=== PATIENT | female | born 1965 | race American Indian/Alaskan Native ===

== ENCOUNTER 2019-10-21 17:20 | Emergency (ER) | payer OTHER ==
--- NOTE | 2019-10-21 21:21 | Event Note ---
ED Screening Note ED Screening Note: states that she fell a month ago went to urgent care diagnosed with a ankle sprain states also diagnosed with gout states she began having erythema in the foot and swelling and toes that began 4 days ago went to an orthopedic doctor today swelling present to the left leg PMHx DM This initial assessment/diagnostic orders/clinical plan/treatment(s) is/are subject to change based on patients health status, clinical progression and re- assessment by fellow clinical providers in the ED. Further treatment and workup at subsequent clinical providers discretion. Patient/guardian urged not to elope from the ED as their condition may be serious if not clinically assessed and managed. Initial orders include: labs
[2019-10-22] MEDS ORDERED: KETOROLAC 30 MG/1 ML INJ IM ONE (00:10)
[2019-10-22] MEDS ORDERED: dexAMETHasone 20 MG/5 ML VIAL IV ONE (00:11)
[2019-10-22 00:12] LABS: Basophils % (Auto) 0.6 % (0.0-1.8); Eosinophils # (Auto) 0.1 K/mm3 (0.0-0.4); Eosinophils % (Auto) 1.9 % (0.0-4.3); Hematocrit 38.1 % (30.3-42.9); Hemoglobin 12.8 gm/dl (10.1-14.3); Lymphocytes # (Auto) 1.6 K/mm3 (1.2-5.4); Lymphocytes % (Auto) 24.3 % (13.4-35.0); Mean Corpuscular HGB Conc 34 % (30-34); Mean Corpuscular Volume 93 fl (79-97); Monocytes # (Auto) 0.6 K/mm3 (0.0-0.8); Monocytes % (Auto) 8.5 % (0.0-7.3); Platelet Count 254 K/mm3 (140-440); Red Cell Distribution Width 15.2 % (13.2-15.2)
[2019-10-22 00:24] LABS: INR 0.97 (0.87-1.13)
[2019-10-22 00:25] LABS: Partial Thromboplastin Time 29.7 Sec. (24.2-36.6)
[2019-10-22 00:54] LABS: Albumin 3.8 g/dL (3.9-5); Calcium 9.5 mg/dL (8.4-10.2)
[2019-10-22] MEDS ORDERED: KETOROLAC 30 MG/1 ML INJ IV ONE (01:08)
[2019-10-22] MEDS ORDERED: POTASSIUM CHLORIDE ER 20 MEQ TAB PO ONE (01:20)
[2019-10-22] MEDS ORDERED: SODIUM CHLORIDE 0.9% 1000 ML 2,000 ML IV ONE (01:22)
--- NOTE | 2019-10-22 01:35 | Emergency Department Report ---
ED General Adult HPI - General Chief complaint: Pain General Stated complaint: LFT LEG SWELLING/PAIN Time Seen by Provider: 10/21/19 21:15 Source: patient Mode of arrival: Ambulatory Limitations: No Limitations - History of Present Illness Initial comments: 54 year old -[place] female with a past medical history of diabetes, CVA, heart attack, hypertension and hyper cholesterolemia presents to the emergency room complaining of left leg swelling and pain intermittently since July 2019. Patient states that she had a fall late in July and was diagnosed with a left ankle strain. Patient states then it he improved and then it had flared up with pain and swelling and was diagnosed on 09/22/2019 with gout. Patient states that she started having pain on 10/19/2019 and went to urgent care and she reports they told her there is nothing they can do. Patient states she did go to an orthopedic provider and she got the same response. Jadon thomas has only tried taking Tylenol No. 3 states that does not help. Recently has taken nothing for pain. She does have a primary care doctor Dr. Loly Shepard. Onset/Timin -: month(s) Location: left, lower extremity Severity scale (0 -10): 10 Quality: stabbing, aching, sharp Consistency: constant Improves with: none Worsens with: movement Associated Symptoms: denies other symptoms Treatments Prior to Arrival: none - Related Data Home Medications Medication Instructions Recorded Confirmed Last Taken Ascorbic Acid [Vitamin C] 1,000 mg PO QDAY 11/29/13 11/29/13 Unknown Aspirin 325 mg PO BID 11/29/13 11/29/13 Unknown Atorvastatin [Lipitor] 40 mg PO QDAY 11/29/13 11/29/13 Unknown Atorvastatin [Lipitor] 40 mg PO QHS 11/29/13 11/29/13 Unknown Clonidine HCl [Catapres] 0.2 mg PO TID 11/29/13 11/29/13 Unknown Clopidogrel [Plavix] 75 mg PO QDAY 11/29/13 11/29/13 Unknown Cyclobenzaprine [Flexeril 10 MG 10 mg PO TID PRN 11/29/13 11/29/13 Unknown TAB] Ferrous Sulfate [Feosol 325 MG tab] 325 mg PO BID 11/29/13 11/29/13 Unknown Furosemide [Lasix] 2 tab PO DAILY 11/29/13 11/29/13 Unknown Gabapentin [Neurontin] 300 mg PO QDAY 11/29/13 11/29/13 Unknown HYDROcodone/APAP 7.5-325 [[place] 1 each PO Q6HR PRN 11/29/13 11/29/13 Unknown 7.5-325 mg TAB] NIFEdipine [NIFEdipine ER] 60 mg PO QDAY 11/29/13 11/29/13 Unknown [place]-3S/Dha/Epa/Fish Oil [Fish 1 cap PO QDAY 11/29/13 11/29/13 Unknown Oil EC 1,200 mg Softgel] Spironolactone [Aldactone] 25 mg PO QDAY 11/29/13 11/29/13 Unknown Tizanidine HCl [Zanaflex] 4 mg PO TID PRN 11/29/13 11/29/13 Unknown Ubidecarenone [Coq-10] 100 mg PO QDAY 11/29/13 11/29/13 Unknown Vitamin B Complex Vit C No.4 1 tab PO QDAY 11/29/13 11/29/13 Unknown [Super B Complex] Zolpidem Tartrate 10 mg PO QHS 11/29/13 11/29/13 Unknown carvediloL [Coreg] 12.5 mg PO BID 11/29/13 11/29/13 Unknown glyBURIDE [Diabeta] 2 tab PO BID 11/29/13 11/29/13 Unknown metFORMIN [Glucophage] 500 mg PO BID 11/29/13 11/29/13 Unknown traMADoL [Ultram 50 MG tab] 50 mg PO Q4HR PRN 11/29/13 11/29/13 Unknown traZODone [Desyrel] 50 mg PO QHS 11/29/13 11/29/13 Unknown Previous Rx's Medication Instructions Recorded Last Taken Type NIFEdipine XL [Procardia Xl] 90 mg PO QDAY #30 tablet 11/30/13 Unknown Rx Potassium Chloride [K-Dur] 20 meq PO QDAY #10 tablet 10/22/19 Unknown Rx cephALEXin [Keflex] 500 mg PO Q12HR #10 cap 10/22/19 Unknown Rx predniSONE [Deltasone] 20 mg PO QDAY #5 tab 10/22/19 Unknown Rx Allergies Allergy/AdvReac Type Severity Reaction Status Date / Time lisinopril Allergy Angioedema Verified 11/29/13 16:26 ED Review of Systems ROS: Stated complaint: LFT LEG SWELLING/PAIN Other details as noted in HPI Comment: All other systems reviewed and negative ED Past Medical Hx - Past Medical History Previous Medical History?: Yes Hx Hypertension: Yes Hx CVA: Yes Hx Heart Attack/AMI: Yes Hx Diabetes: Yes Additional medical history: high cholesterol. CAD - Surgical History Past Surgical History?: Yes - Social History Smoking Status: Never Smoker Substance Use Type: None - Medications Home Medications: Home Medications Medication Instructions Recorded Confirmed Last Taken Type Ascorbic Acid [Vitamin C] 1,000 mg PO QDAY 11/29/13 11/29/13 Unknown History Aspirin 325 mg PO BID 11/29/13 11/29/13 Unknown History Atorvastatin [Lipitor] 40 mg PO QDAY 11/29/13 11/29/13 Unknown History Atorvastatin [Lipitor] 40 mg PO QHS 11/29/13 11/29/13 Unknown History Clonidine HCl [Catapres] 0.2 mg PO TID 11/29/13 11/29/13 Unknown History Clopidogrel [Plavix] 75 mg PO QDAY 11/29/13 11/29/13 Unknown History Cyclobenzaprine [Flexeril 10 MG 10 mg PO TID PRN 11/29/13 11/29/13 Unknown History TAB] Ferrous Sulfate [Feosol 325 MG tab] 325 mg PO BID 11/29/13 11/29/13 Unknown History Furosemide [Lasix] 2 tab PO DAILY 11/29/13 11/29/13 Unknown History Gabapentin [Neurontin] 300 mg PO QDAY 11/29/13 11/29/13 Unknown History HYDROcodone/APAP 7.5-325 [[place] 1 each PO Q6HR PRN 11/29/13 11/29/13 Unknown History 7.5-325 mg TAB] NIFEdipine [NIFEdipine ER] 60 mg PO QDAY 11/29/13 11/29/13 Unknown History [place]-3S/Dha/Epa/Fish Oil [Fish 1 cap PO QDAY 11/29/13 11/29/13 Unknown History Oil EC 1,200 mg Softgel] Spironolactone [Aldactone] 25 mg PO QDAY 11/29/13 11/29/13 Unknown History Tizanidine HCl [Zanaflex] 4 mg PO TID PRN 11/29/13 11/29/13 Unknown History Ubidecarenone [Coq-10] 100 mg PO QDAY 11/29/13 11/29/13 Unknown History Vitamin B Complex Vit C No.4 1 tab PO QDAY 11/29/13 11/29/13 Unknown History [Super B Complex] Zolpidem Tartrate 10 mg PO QHS 11/29/13 11/29/13 Unknown History carvediloL [Coreg] 12.5 mg PO BID 11/29/13 11/29/13 Unknown History glyBURIDE [Diabeta] 2 tab PO BID 11/29/13 11/29/13 Unknown History metFORMIN [Glucophage] 500 mg PO BID 11/29/13 11/29/13 Unknown History traMADoL [Ultram 50 MG tab] 50 mg PO Q4HR PRN 11/29/13 11/29/13 Unknown History traZODone [Desyrel] 50 mg PO QHS 11/29/13 11/29/13 Unknown History NIFEdipine XL [Procardia Xl] 90 mg PO QDAY #30 tablet 11/30/13 Unknown Rx Potassium Chloride [K-Dur] 20 meq PO QDAY #10 tablet 10/22/19 Unknown Rx cephALEXin [Keflex] 500 mg PO Q12HR #10 cap 10/22/19 Unknown Rx predniSONE [Deltasone] 20 mg PO QDAY #5 tab 10/22/19 Unknown Rx ED Physical Exam - General Limitations: No Limitations General appearance: alert, in no apparent distress - Head Head exam: Present: atraumatic, normocephalic - Eye Eye exam: Present: normal appearance - Neck Neck exam: Present: normal inspection - Respiratory Respiratory exam: Present: normal lung sounds bilaterally. Absent: respiratory distress - Cardiovascular Cardiovascular Exam: Present: regular rate, normal rhythm. Absent: systolic murmur, diastolic murmur, rubs, gallop - Expanded Lower Extremity Exam Left Upper Leg exam: Present: normal inspection Knee exam: Present: normal inspection, full ROM Lower Leg exam: Present: normal inspection, full ROM Ankle exam: Present: full ROM, tenderness, swelling Neuro vascular tendon exam: Present: no vascular compromise - Back Exam Back exam: Present: normal inspection - Neurological Exam Neurological exam: Present: alert, oriented X3 - Psychiatric Psychiatric exam: Present: normal affect, normal mood - Skin Skin exam: Present: warm, dry, intact, normal color. Absent: rash ED Course Vital Signs 10/21/19 10/22/19 10/22/19 21:15 01:41 01:45 Temperature 98.8 F Pulse Rate 84 54 L Respiratory 18 18 11 L Rate Blood Pressure 128/66 116/95 O2 Sat by Pulse 99 99 99 Oximetry 10/22/19 10/22/19 10/22/19 02:00 02:31 03:01 Temperature Pulse Rate 62 61 57 L Respiratory 18 15 15 Rate Blood Pressure 143/79 117/57 131/68 O2 Sat by Pulse 99 100 98 Oximetry 10/22/19 03:30 Temperature Pulse Rate 58 L Respiratory 17 Rate Blood Pressure 107/65 O2 Sat by Pulse 99 Oximetry ED Medical Decision Making - Lab Data Result diagrams: 10/21/19 23:30 10/21/19 23:30 - Medical Decision Making 54 year old -[place] female with a past medical history of diabetes, CVA, heart attack, hypertension and hyper cholesterolemia presents to the emergency room complaining of left leg swelling and pain intermittently since July 2019. Patient states that she had a fall late in July and was diagnosed with a left ankle strain. Patient states then it he improved and then it had flared up with pain and swelling and was diagnosed on 09/22/2019 with gout. Patient states that she started having pain on 10/19/2019 and went to urgent care and she reports they told her there is nothing they can do. Patient states she did go to an orthopedic provider and she got the same response. Lore waite has only tried taking Tylenol No. 3 states that does not help. Recently has taken nothing for pain. She does have a primary care doctor Dr. Loly Shepard. Critical care attestation.: If time is entered above; I have spent that time in minutes in the direct care of this critically ill patient, excluding procedure time. ED Disposition Clinical Impression: Hypokalemia, Left ankle pain, Cellulitis of left ankle Disposition: - TO HOME OR SELFCARE Is pt being admited?: No Does the pt Need Aspirin: No Condition: Stable Instructions: Hypokalemia (ED) Additional Instructions: These take medication as prescribed. It's very important for you to follow-up with her primary care provider Friday or Friday of next week to have year potassium rechecked. Prescriptions: predniSONE [Deltasone] 20 mg PO QDAY #5 tab Potassium Chloride [K-Dur] 20 meq PO QDAY #10 tablet cephALEXin [Keflex] 500 mg PO Q12HR #10 cap Referrals: ROSAS SHEPARD [Primary Care Provider] - 3-5 Days Forms: Work/School Release Form(ED)
[2019-10-22] MEDS: POTASSIUM CHLORIDE 10 MEQ 10 MEQ/100 ML BAG IV SCH ×2 (02:17→03:32)
[2019-10-22 04:40] VITALS: BP 119/53
== END 2019-10-22 05:06 | disposition home or self-care (01) ==
LOC: ED 17:20
DX: E87.6 Hypokalemia (principal); L03.116 Cellulitis of left lower limb; I10 Essential (primary) hypertension; I25.2 Old myocardial infarction; E78.00 Pure hypercholesterolemia, unspecified; E11.9 Type 2 diabetes mellitus without complications; Z79.899 Other long term (current) drug therapy; Z88.6 Allergy status to analgesic agent
CPT/HCPCS: 36415; 80053; 85025; 85610; 85730; 93005; 93010; 96361; 96365; 96366; 96375; 99283; J1100; J1885; J3480; J7030

== ENCOUNTER 2020-05-15 15:09 | Emergency (ER) | payer BC ==
[2020-05-15] MEDS ORDERED: ASPIRIN 325 MG TAB PO ONE (15:30)
--- NOTE | 2020-05-15 15:57 | XRay Report ---
CHEST 1 VIEW INDICATION: Chest Pain. COMPARISON: 11/29/2013. FINDINGS: Support devices: None. Heart: Within normal limits. Lungs/Pleura: No acute air space or interstitial disease. Additional findings: None. IMPRESSION: No acute abnormality. Signer Name: Jose Daniel Jamison MD Signed: 05/15/2020 3:53 PM Workstation Name: [id number]
[2020-05-15 16:52] LABS: Basophils % (Auto) 0.5 % (0.0-1.8); Eosinophils # (Auto) 0.2 K/mm3 (0.0-0.4); Eosinophils % (Auto) 2.6 % (0.0-4.3); Hematocrit 34.6 % (30.3-42.9); Hemoglobin 11.9 gm/dl (10.1-14.3); Lymphocytes # (Auto) 1.3 K/mm3 (1.2-5.4); Lymphocytes % (Auto) 21.7 % (13.4-35.0); Mean Corpuscular HGB Conc 34 % (30-34); Mean Corpuscular Volume 93 fl (79-97); Monocytes # (Auto) 0.6 K/mm3 (0.0-0.8); Monocytes % (Auto) 9.9 % (0.0-7.3); Platelet Count 195 K/mm3 (140-440); Red Blood Count 3.71 M/mm3 (3.65-5.03); Red Cell Distribution Width 15.4 % (13.2-15.2)
[2020-05-15 17:20] LABS: BUN/Creatinine Ratio 11; Blood Urea Nitrogen 15 mg/dL (7-17); Calcium 8.5 mg/dL (8.4-10.2); Hemolysis Index 5
[2020-05-16] MEDS ORDERED: DICYCLOMINE 20 MG/2 ML INJ IM ONE (00:15)
[2020-05-16] MEDS ORDERED: ONDANSETRON 4 MG/2 ML INJ IM ONE (00:20)
--- NOTE | 2020-05-16 00:22 | Emergency Department Report ---
ED General Adult HPI - General Chief complaint: Chest Pain Stated complaint: ABD PAIN/CP Time Seen by Provider: 05/16/20 00:07 Source: patient, EMS Mode of arrival: Ambulatory Limitations: No Limitations - History of Present Illness Initial comments: Patient is 55 years old female with history of hypertension, coronary artery disease and diabetes. Patient presented to the ER complaining of left sided chest pain, sharp in nature with no radiation. Patient is also complaining of left lower quadrant pain. Patient stated the pain is been going on for 4 days. Patient denied any fever or chills. No cough or shortness of breath. Patient stated that she is nauseated but denied any vomiting or diarrhea. - Related Data Home Medications Medication Instructions Recorded Confirmed Last Taken Ascorbic Acid [Vitamin C] 1,000 mg PO QDAY 11/29/13 11/29/13 Unknown Aspirin 325 mg PO BID 11/29/13 11/29/13 Unknown Atorvastatin [Lipitor] 40 mg PO QDAY 11/29/13 11/29/13 Unknown Atorvastatin [Lipitor] 40 mg PO QHS 11/29/13 11/29/13 Unknown Clonidine HCl [Catapres] 0.2 mg PO TID 11/29/13 11/29/13 Unknown Clopidogrel [Plavix] 75 mg PO QDAY 11/29/13 11/29/13 Unknown Cyclobenzaprine [Flexeril 10 MG 10 mg PO TID PRN 11/29/13 11/29/13 Unknown TAB] Ferrous Sulfate [Feosol 325 MG tab] 325 mg PO BID 11/29/13 11/29/13 Unknown Furosemide [Lasix] 2 tab PO DAILY 11/29/13 11/29/13 Unknown Gabapentin [Neurontin] 300 mg PO QDAY 11/29/13 11/29/13 Unknown HYDROcodone/APAP 7.5-325 [[place] 1 each PO Q6HR PRN 11/29/13 11/29/13 Unknown 7.5-325 mg TAB] NIFEdipine [NIFEdipine ER] 60 mg PO QDAY 11/29/13 11/29/13 Unknown [place]-3S/Dha/Epa/Fish Oil [Fish 1 cap PO QDAY 11/29/13 11/29/13 Unknown Oil EC 1,200 mg Softgel] Spironolactone [Aldactone] 25 mg PO QDAY 11/29/13 11/29/13 Unknown Tizanidine HCl [Zanaflex] 4 mg PO TID PRN 11/29/13 11/29/13 Unknown Ubidecarenone [Coq-10] 100 mg PO QDAY 11/29/13 11/29/13 Unknown Vitamin B Complex Vit C No.4 1 tab PO QDAY 11/29/13 11/29/13 Unknown [Super B Complex] Zolpidem Tartrate 10 mg PO QHS 11/29/13 11/29/13 Unknown carvediloL [Coreg] 12.5 mg PO BID 11/29/13 11/29/13 Unknown glyBURIDE [Diabeta] 2 tab PO BID 11/29/13 11/29/13 Unknown metFORMIN [Glucophage] 500 mg PO BID 11/29/13 11/29/13 Unknown traMADoL [Ultram 50 MG tab] 50 mg PO Q4HR PRN 11/29/13 11/29/13 Unknown traZODone [Desyrel] 50 mg PO QHS 11/29/13 11/29/13 Unknown Previous Rx's Medication Instructions Recorded Last Taken Type NIFEdipine XL [Procardia Xl] 90 mg PO QDAY #30 tablet 11/30/13 Unknown Rx Potassium Chloride [K-Dur] 20 meq PO QDAY #10 tablet 10/22/19 Unknown Rx cephALEXin [Keflex] 500 mg PO Q12HR #10 cap 10/22/19 Unknown Rx predniSONE [Deltasone] 20 mg PO QDAY #5 tab 10/22/19 Unknown Rx Allergies Allergy/AdvReac Type Severity Reaction Status Date / Time lisinopril Allergy Angioedema Verified 11/29/13 16:26 ED Review of Systems ROS: Stated complaint: ABD PAIN/CP Other details as noted in HPI Comment: All other systems reviewed and negative Constitutional: denies: chills, fever Respiratory: denies: cough, shortness of breath, SOB with exertion Cardiovascular: chest pain. denies: palpitations, dyspnea on exertion, ort hopnea Gastrointestinal: abdominal pain. denies: nausea, vomiting, diarrhea, constipation, hematemesis, melena, hematochezia Musculoskeletal: denies: back pain Neurological: denies: headache, weakness, numbness, paresthesias, confusion, abnormal gait ED Past Medical Hx - Past Medical History Previous Medical History?: Yes Hx Hypertension: Yes Hx CVA: Yes Hx Heart Attack/AMI: Yes Hx Diabetes: Yes Additional medical history: high cholesterol. CAD - Social History Smoking Status: Never Smoker Substance Use Type: None - Medications Home Medications: Home Medications Medication Instructions Recorded Confirmed Last Taken Type Ascorbic Acid [Vitamin C] 1,000 mg PO QDAY 11/29/13 11/29/13 Unknown History Aspirin 325 mg PO BID 11/29/13 11/29/13 Unknown History Atorvastatin [Lipitor] 40 mg PO QDAY 11/29/13 11/29/13 Unknown History Atorvastatin [Lipitor] 40 mg PO QHS 11/29/13 11/29/13 Unknown History Clonidine HCl [Catapres] 0.2 mg PO TID 11/29/13 11/29/13 Unknown History Clopidogrel [Plavix] 75 mg PO QDAY 11/29/13 11/29/13 Unknown History Cyclobenzaprine [Flexeril 10 MG 10 mg PO TID PRN 11/29/13 11/29/13 Unknown History TAB] Ferrous Sulfate [Feosol 325 MG tab] 325 mg PO BID 11/29/13 11/29/13 Unknown History Furosemide [Lasix] 2 tab PO DAILY 11/29/13 11/29/13 Unknown History Gabapentin [Neurontin] 300 mg PO QDAY 11/29/13 11/29/13 Unknown History HYDROcodone/APAP 7.5-325 [[place] 1 each PO Q6HR PRN 11/29/13 11/29/13 Unknown History 7.5-325 mg TAB] NIFEdipine [NIFEdipine ER] 60 mg PO QDAY 11/29/13 11/29/13 Unknown History [place]-3S/Dha/Epa/Fish Oil [Fish 1 cap PO QDAY 11/29/13 11/29/13 Unknown History Oil EC 1,200 mg Softgel] Spironolactone [Aldactone] 25 mg PO QDAY 11/29/13 11/29/13 Unknown History Tizanidine HCl [Zanaflex] 4 mg PO TID PRN 11/29/13 11/29/13 Unknown History Ubidecarenone [Coq-10] 100 mg PO QDAY 11/29/13 11/29/13 Unknown History Vitamin B Complex Vit C No.4 1 tab PO QDAY 11/29/13 11/29/13 Unknown History [Super B Complex] Zolpidem Tartrate 10 mg PO QHS 11/29/13 11/29/13 Unknown History carvediloL [Coreg] 12.5 mg PO BID 11/29/13 11/29/13 Unknown History glyBURIDE [Diabeta] 2 tab PO BID 11/29/13 11/29/13 Unknown History metFORMIN [Glucophage] 500 mg PO BID 11/29/13 11/29/13 Unknown History traMADoL [Ultram 50 MG tab] 50 mg PO Q4HR PRN 11/29/13 11/29/13 Unknown History traZODone [Desyrel] 50 mg PO QHS 11/29/13 11/29/13 Unknown History NIFEdipine XL [Procardia Xl] 90 mg PO QDAY #30 tablet 11/30/13 Unknown Rx Potassium Chloride [K-Dur] 20 meq PO QDAY #10 tablet 10/22/19 Unknown Rx cephALEXin [Keflex] 500 mg PO Q12HR #10 cap 10/22/19 Unknown Rx predniSONE [Deltasone] 20 mg PO QDAY #5 tab 10/22/19 Unknown Rx ED Physical Exam - General Limitations: No Limitations General appearance: alert, in no apparent distress - Head Head exam: Present: atraumatic, normocephalic, normal inspection - Eye Eye exam: Present: normal appearance - ENT ENT exam: Present: normal exam, normal orophraynx, mucous membranes moist - Neck Neck exam: Present: normal inspection. Absent: tenderness, meningismus - Respiratory Respiratory exam: Present: normal lung sounds bilaterally. Absent: respiratory distress, wheezes, rales, rhonchi, chest wall tenderness, accessory muscle use, decreased breath sounds, prolonged expiratory - Cardiovascular Cardiovascular Exam: Present: regular rate, normal rhythm, normal heart sounds - GI/Abdominal GI/Abdominal exam: Present: soft, normal bowel sounds. Absent: distended, tenderness, guarding, rebound, rigid, mass, bruit, pulsatile mass, hernia - Extremities Exam Extremities exam: Present: normal inspection, full ROM, normal capillary refill. Absent: tenderness, pedal edema, calf tenderness - Back Exam Back exam: Present: normal inspection, full ROM. Absent: CVA tenderness (R), CVA tenderness (L) - Neurological Exam Neurological exam: Present: alert, oriented X3, CN II-XII intact, normal gait, reflexes normal. Absent: motor sensory deficit - Psychiatric Psychiatric exam: Present: normal mood - Skin Skin exam: Present: warm, intact, normal color ED Course Vital Signs 05/15/20 05/16/20 15:41 01:14 Temperature 98.9 F 98.6 F Pulse Rate 57 L 63 Respiratory 25 H 20 Rate Blood Pressure 154/78 Blood Pressure 171/79 [Left] O2 Sat by Pulse 98 99 Oximetry ED Medical Decision Making - Lab Data Result diagrams: 05/15/20 16:17 05/15/20 16:17 - EKG Data -: EKG Interpreted by Co EKG shows normal: sinus rhythm Rate: normal - EKG Data Interpretation: no acute changes - Radiology Data Radiology results: report reviewed - Medical Decision Making Patient is 55 years old female with history of hypertension, coronary artery disease and diabetes. Patient presented to the ER complaining of left sided chest pain, sharp in nature with no radiation. Patient is also complaining of left lower quadrant pain. Patient stated the pain is been going on for 4 days. Patient denied any fever or chills. No cough or shortness of breath. Patient stated that she is nauseated but denied any vomiting or diarrhea. Patient remained stable in the emergency room with a stable vital signs. Labs reviewed and is unremarkable including a negative troponins x2. Chest x-ray is unremarkable. Abdominal x-ray is negative for acute finding. Patient chest pain is atypical and reproducible. Patient given prescription for Bentyl and Zofran and advised to follow-up with her primary care physician in the next 2 to 3 days. Critical care attestation.: If time is entered above; I have spent that time in minutes in the direct care of this critically ill patient, excluding procedure time. ED Disposition Clinical Impression: Chest pain, Abdominal pain Disposition: TO HOME OR SELFCARE Is pt being admited?: No Condition: Stable Instructions: Chest Pain (ED), Abdominal Pain (ED) Referrals: ROSAS SHEPARD [Primary Care Provider] - 3-5 Days
--- NOTE | 2020-05-16 00:51 | XRay Report ---
ABDOMEN 2 VIEW(S) INDICATION / CLINICAL INFORMATION: abdominal pain. COMPARISON: None available. FINDINGS: TUBES / LINES: None. BOWEL GAS PATTERN: No significant abnormality. FREE AIR / EXTRALUMINAL GAS: None seen. ADDITIONAL FINDINGS: No significant additional findings. IMPRESSION: 1. No significant abnormality. Signer Name: Cristiano Laguna MD Signed: 05/16/2020 12:47 AM Workstation Name: [id number]
[2020-05-16 01:15] VITALS: BP 171/79
[2020-05-16] MEDS ORDERED: ONDANSETRON 4 MG ODT TAB ONE (01:21)
[2020-05-16] MEDS ORDERED: ONDANSETRON 4 MG ODT TAB PO ONE (01:29)
== END 2020-05-16 01:55 | disposition home or self-care (01) ==
LOC: ED 15:09
DX: R10.32 Left lower quadrant pain (principal); R07.89 Other chest pain
CPT/HCPCS: 36415; 71045; 74019; 80048; 84484; 85025; 93005; 96372; 99284; J0500; J2405; Q0162